=== PATIENT | male | born 1935 | race Asian ===

== ENCOUNTER 2020-10-11 15:37 | Inpatient (IN) | payer MEDICARE, OTHER ==
[~2020-10-11] VITALS: Ht 172.7 cm; Wt 54.6 kg
[2020-10-11 16:50] LABS: ANION GAP 13 mmol/L (8-16); CALCIUM, TOTAL 8.9 mg/dL (8.8-10.5); CARBON DIOXIDE 22 mmol/L (22-29); CHLORIDE 110 mmol/L (98-107); GLOMERULAR FILTR. RATE CALC 36 mL/min (>60); GLUCOSE,RANDOM 93 mg/dL (70-110); POTASSIUM 3.8 mmol/L (3.5-5.1); SODIUM SERUM 145 mmol/L (136-145); UREA NITROGEN, BLOOD 44 mg/dL (7-18)
[2020-10-11 16:55] LABS: ALANINE AMINOTRANSFERASE 96 U/L (12-78); ALBUMIN 3.7 g/dL (3.4-5.0); ALKALINE PHOSPHATASE 56 U/L (46-116); ASPARTATE AMINOTRANSFERASE 154 U/L (15-37); BILIRUBIN,TOTAL 0.7 mg/dL (0.1-1.0); LIPASE 63 U/L (73-393); TOTAL PROTEIN, SERUM 6.9 g/dL (6.4-8.2)
[2020-10-11 17:06] LABS: LACTIC ACID 2.2 mmol/L (0.4-2.0)
[2020-10-11 17:07] LABS: B-TYPE NATRIURETIC PEPTIDE 349 pg/mL (0-100)
[2020-10-11 17:11] LABS: BASOPHILS % (AUTO) 0.2 % (0.0-2.0); EOSINOPHILS % (AUTO) 0.1 % (1.0-6.0); HEMATOCRIT 40.2 % (41-53); HEMOGLOBIN 13.1 g/dL (13.5-17.5); LYMPHOCYTES # (AUTO) 0.2 K/uL (1.0-4.8); LYMPHOCYTES % (AUTO) 2.2 % (22.0-44.0); MEAN CORPUSCULAR HEMOGLOBIN 31.5 pg (26.0-34.0); MEAN CORPUSCULAR HGB CONC 32.5 G/dL (31.0-37.0); MEAN CORPUSCULAR VOLUME 97 fL (80-100); MONOCYTES # (AUTO) 0.6 K/uL (0.1-1.0); MONOCYTES % (AUTO) 6.7 % (2.0-9.0); NEUTROPHILS # (AUTO) 8.6 K/uL (1.8-7.7); RED BLOOD CELL COUNT(AUTO) 4.16 MIL/uL (4.50-5.90); RED CELL DISTRIBUTION WIDTH 14.8 % (11.5-14.5)
[2020-10-11 17:12] LABS: NEUTROPHILS % (AUTO) 90.8 % (40.0-70.0)
[2020-10-11 17:14] LABS: COVID AG,FIA SOURCE NASOPHARYNGEAL
[2020-10-11] MEDS ORDERED: SODIUM CHLORIDE 0.9% 500 ML IV ONE (17:30)
[2020-10-11] MEDS ORDERED: CefTRIAXone 1 GM/DEXTROSE 50 ML IV ONE (17:30)
[2020-10-11 17:32] LABS: APPEARANCE,URINE CLOUDY (CLEAR); BILIRUBIN,URINE NEGATIVE (NEGATIVE); GLUCOSE, URINE (UA) NEGATIVE (NEGATIVE); KETONES,URINE 40 mg/dL (NEGATIVE); LEUKOCYTE ESTERASE ,URINE SMALL (NEGATIVE); NITRATE,URINE NEGATIVE (NEGATIVE); OCCULT BLOOD,URINE LARGE (NEGATIVE); PH,URINE 5.5 (5.0-8.0); PROTEIN,URINE POS 1+ (NEGATIVE); UROBILINOGEN,URINE 0.2 mg/dL (<=1.0)
[2020-10-11 17:32] LABS: PLATELET COUNT (AUTO) 92 K/uL (150-450)
[2020-10-11 17:58] LABS: INFLUENZA TYPE A NEGATIVE FOR TYPE A (NEGATIVE); INFLUENZA TYPE B NEGATIVE FOR TYPE B (NEGATIVE)
[2020-10-11 18:02] LABS: RBC,URINE Full Field /HPF (0-2)
[2020-10-11 18:04] LABS: BACTERIA,URINE None Seen /HPF (None Seen)
[2020-10-11 18:05] LABS: TRANSITIONAL EPI CELLS,URINE None Seen /LPF (None Seen)
[2020-10-11] MEDS ORDERED: ACETAMINOPHEN 325 MG TABLET PO PRN (20:30)
[2020-10-11] MEDS ORDERED: ONDANSETRON HCL 4 MG/2 ML VIAL IVP PRN (20:30)
[2020-10-11] MEDS ORDERED: HydrALAZINE HCL 20 MG/ML VIAL IVP PRN (22:15)
[2020-10-11 22:16] VITALS: BP 189/99
[2020-10-11] MEDS: SODIUM CHLORIDE 0.45% 1,000 ML IV SCH (23:06)
[2020-10-11] MEDS: HEPARIN SODIUM,PORCINE 5,000 UNITS/ML VIAL SQ SCH (23:14)
[2020-10-12] VITALS (7 sets, daily range): BP systolic 134–154; BP diastolic 61–78
[2020-10-12] MEDS: SODIUM CHLORIDE 0.45% 1,000 ML IV SCH ×2 (07:57→17:34)
[2020-10-12] MEDS: HEPARIN SODIUM,PORCINE 5,000 UNITS/ML VIAL SQ SCH (08:00)
[2020-10-12] MEDS ORDERED: SODIUM CHLORIDE 0.9% 100 ML ONE ×2 (10:43→17:31)
[2020-10-12] MEDS: MEMANTINE HCL 10 MG TABLET PO SCH (21:46)
[2020-10-12] MEDS: CARBIDOPA/LEVODOPA 25-100 MG TABLET PO SCH (21:46)
[2020-10-12] MEDS: TAMSULOSIN HCL 0.4 MG CAPSULE PO SCH (21:46)
[2020-10-12] MEDS: ATORVASTATIN CALCIUM 40 MG TABLET PO SCH (21:46)
[2020-10-13] MEDS ORDERED: LISI-893 PO (01:15)
[2020-10-13] MEDS ORDERED: ATOR40TA71 PO (01:15)
[2020-10-13] MEDS ORDERED: CARB-98 PO (01:15)
[2020-10-13] MEDS ORDERED: MIRT-89 PO (01:15)
[2020-10-13] MEDS ORDERED: MEMA10TA11 PO (01:15)
[2020-10-13] MEDS ORDERED: TAMS-13 PO (01:15)
[2020-10-13] MEDS ORDERED: SODIUM CHLORIDE 0.9% 100 ML ONE ×2 (01:32→13:31)
[2020-10-13] MEDS: SODIUM CHLORIDE 0.45% 1,000 ML IV SCH ×2 (03:37→13:48)
[2020-10-13 04:54] VITALS: BP 146/79
[2020-10-13 07:07] LABS: ANION GAP 5 mmol/L (8-16); CALCIUM, TOTAL 7.9 mg/dL (8.8-10.5); CARBON DIOXIDE 25 mmol/L (22-29); CHLORIDE 108 mmol/L (98-107); CREATININE 1.05 mg/dL (0.60-1.30); GLUCOSE,RANDOM 91 mg/dL (70-110); PHOSPHORUS 2.1 mg/dL (2.5-4.9); POTASSIUM 3.6 mmol/L (3.5-5.1); SODIUM SERUM 138 mmol/L (136-145); UREA NITROGEN, BLOOD 25 mg/dL (7-18)
[2020-10-13 07:08] LABS: GLOMERULAR FILTR. RATE CALC > 60 mL/min (>60)
[2020-10-13 07:15] LABS: BASOPHILS % (AUTO) 0.3 % (0.0-2.0); HEMATOCRIT 36.9 % (41-53); HEMOGLOBIN 12.2 g/dL (13.5-17.5); LYMPHOCYTES # (AUTO) 1.2 K/uL (1.0-4.8); LYMPHOCYTES % (AUTO) 19.3 % (22.0-44.0); MEAN CORPUSCULAR HEMOGLOBIN 31.6 pg (26.0-34.0); MEAN CORPUSCULAR VOLUME 96 fL (80-100); MONOCYTES # (AUTO) 0.6 K/uL (0.1-1.0); MONOCYTES % (AUTO) 10.1 % (2.0-9.0); NEUTROPHILS # (AUTO) 4.4 K/uL (1.8-7.7); NEUTROPHILS % (AUTO) 69.3 % (40.0-70.0); PLATELET COUNT (AUTO) 73 K/uL (150-450); RED BLOOD CELL COUNT(AUTO) 3.85 MIL/uL (4.50-5.90); RED CELL DISTRIBUTION WIDTH 15.2 % (11.5-14.5)
[2020-10-13 07:22] VITALS: BP 156/72
[2020-10-13] MEDS: LISINOPRIL 10 MG TABLET PO SCH (08:10)
[2020-10-13] MEDS: MEMANTINE HCL 10 MG TABLET PO SCH ×2 (08:11→19:52)
[2020-10-13] MEDS: CARBIDOPA/LEVODOPA 25-100 MG TABLET PO SCH ×3 (08:11→19:52)
[2020-10-13 10:34] VITALS: BP 135/78
[2020-10-13] MEDS ORDERED: IOHEXOL 350 MG/ML 100 ML VIAL ONE (13:31)
[2020-10-13 15:41] VITALS: BP 133/64
[2020-10-13 19:28] VITALS: BP 136/75
[2020-10-13] MEDS: ATORVASTATIN CALCIUM 40 MG TABLET PO SCH (19:52)
[2020-10-13] MEDS: TAMSULOSIN HCL 0.4 MG CAPSULE PO SCH (19:52)
[2020-10-13 23:40] VITALS: BP 147/88
[2020-10-14] VITALS (7 sets, daily range): BP systolic 111–152; BP diastolic 62–93
[2020-10-14] MEDS: SODIUM CHLORIDE 0.45% 1,000 ML IV SCH ×3 (00:29→19:23)
[2020-10-14] MEDS: LISINOPRIL 10 MG TABLET PO SCH (08:04)
[2020-10-14] MEDS: MEMANTINE HCL 10 MG TABLET PO SCH ×2 (08:04→20:04)
[2020-10-14] MEDS: CARBIDOPA/LEVODOPA 25-100 MG TABLET PO SCH ×3 (08:04→20:04)
[2020-10-14] MEDS ORDERED: MAGNESIUM OXIDE 400 MG TABLET PO ONE (09:30)
[2020-10-14] MEDS: ATORVASTATIN CALCIUM 40 MG TABLET PO SCH (20:04)
[2020-10-14] MEDS: TAMSULOSIN HCL 0.4 MG CAPSULE PO SCH (20:04)
[2020-10-15 04:46] VITALS: BP 143/72
[2020-10-15] MEDS: SODIUM CHLORIDE 0.45% 1,000 ML IV SCH ×2 (05:52→18:58)
[2020-10-15 06:29] LABS: BASOPHILS % (AUTO) 0.3 % (0.0-2.0); EOSINOPHILS % (AUTO) 0.7 % (1.0-6.0); HEMATOCRIT 32.3 % (41-53); HEMOGLOBIN 11.1 g/dL (13.5-17.5); LYMPHOCYTES # (AUTO) 1.1 K/uL (1.0-4.8); LYMPHOCYTES % (AUTO) 22.1 % (22.0-44.0); MEAN CORPUSCULAR HEMOGLOBIN 32.4 pg (26.0-34.0); MEAN CORPUSCULAR HGB CONC 34.3 G/dL (31.0-37.0); MEAN CORPUSCULAR VOLUME 94 fL (80-100); MONOCYTES # (AUTO) 0.5 K/uL (0.1-1.0); MONOCYTES % (AUTO) 10.5 % (2.0-9.0); NEUTROPHILS # (AUTO) 3.2 K/uL (1.8-7.7); NEUTROPHILS % (AUTO) 66.4 % (40.0-70.0); PLATELET COUNT (AUTO) 62 K/uL (150-450); RED BLOOD CELL COUNT(AUTO) 3.42 MIL/uL (4.50-5.90); RED CELL DISTRIBUTION WIDTH 14.8 % (11.5-14.5)
[2020-10-15 07:12] LABS: ANION GAP 1 mmol/L (8-16); CARBON DIOXIDE 29 mmol/L (22-29); CHLORIDE 106 mmol/L (98-107); CREATININE 0.84 mg/dL (0.60-1.30); GLUCOSE,RANDOM 96 mg/dL (70-110); POTASSIUM 3.3 mmol/L (3.5-5.1); SODIUM SERUM 136 mmol/L (136-145); UREA NITROGEN, BLOOD 13 mg/dL (7-18)
[2020-10-15 07:14] LABS: CREATINE KINASE, TOTAL ONLY 1927 U/L (39-308); GLOMERULAR FILTR. RATE CALC > 60 mL/min (>60)
[2020-10-15 07:49] LABS: PHOSPHORUS 3.5 mg/dL (2.5-4.9)
[2020-10-15 08:20] VITALS: BP 147/78
[2020-10-15] MEDS: CARBIDOPA/LEVODOPA 25-100 MG TABLET PO SCH ×3 (09:04→20:25)
[2020-10-15] MEDS: LISINOPRIL 10 MG TABLET PO SCH (09:04)
[2020-10-15] MEDS: MEMANTINE HCL 10 MG TABLET PO SCH ×2 (09:04→20:25)
[2020-10-15] MEDS ORDERED: POTASSIUM CHL 10 MEQ/WATER 50 ML IV PRN (10:00)
[2020-10-15] MEDS ORDERED: POTASSIUM CHLORIDE 20 MEQ ER TABLET PO PRN (10:00)
[2020-10-15] MEDS ORDERED: MAGNESIUM SULFATE 4 GM/WATER 100 ML IV PRN (10:00)
[2020-10-15] MEDS ORDERED: MAGNESIUM SULFATE 2 GM/WATER 50 ML IV PRN (10:00)
[2020-10-15] MEDS ORDERED: MAGNESIUM OXIDE 400 MG TABLET PO PRN (10:00)
[2020-10-15 10:14] LABS: ALBUMIN 2.6 g/dL (3.4-5.0)
[2020-10-15] MEDS ORDERED: MAGNESIUM HYDROXIDE SUSPENSION 30 ML UDCUP PO PRN (11:30)
[2020-10-15] MEDS: DOCUSATE SODIUM 100 MG CAPSULE PO SCH ×2 (12:05→20:25)
[2020-10-15 13:14] VITALS: BP 118/65
[2020-10-15 16:31] VITALS: BP 131/65
[2020-10-15 19:09] VITALS: BP 127/64
[2020-10-15] MEDS: ATORVASTATIN CALCIUM 40 MG TABLET PO SCH (20:25)
[2020-10-15] MEDS: TAMSULOSIN HCL 0.4 MG CAPSULE PO SCH (20:25)
[2020-10-16 00:01] VITALS: BP 146/74
[2020-10-16 04:30] VITALS: BP 150/79
[2020-10-16] MEDS: SODIUM CHLORIDE 0.45% 1,000 ML IV SCH ×2 (04:33→14:25)
[2020-10-16 07:18] LABS: MAGNESIUM 1.5 mg/dL (1.80-2.40)
[2020-10-16 08:11] VITALS: BP 146/77
[2020-10-16] MEDS: LISINOPRIL 10 MG TABLET PO SCH (08:52)
[2020-10-16] MEDS: DOCUSATE SODIUM 100 MG CAPSULE PO SCH (08:52)
[2020-10-16] MEDS: CARBIDOPA/LEVODOPA 25-100 MG TABLET PO SCH ×2 (08:52→16:17)
[2020-10-16] MEDS: MEMANTINE HCL 10 MG TABLET PO SCH (08:52)
[2020-10-16 11:38] VITALS: BP 117/62
[2020-10-16] MEDS ORDERED: MAGNESIUM OXIDE 400 MG TABLET PO PRN (12:00)
[2020-10-16] MEDS ORDERED: MAGNESIUM SULFATE 4 GM/WATER 100 ML IV PRN (12:00)
[2020-10-16] MEDS ORDERED: MAGNESIUM SULFATE 2 GM/WATER 50 ML IV PRN (12:00)
[2020-10-16 12:13] LABS: ALBUMIN 2.6 g/dL (3.4-5.0)
[2020-10-16 16:19] VITALS: BP 164/84
[2020-10-16] MEDS ORDERED: DOCU100C33 PO (17:53)
[2020-10-16] MEDS ORDERED: ACET-784 PO (17:59)
[2020-10-16] MEDS ORDERED: [UNRECOGNIZED DRUG - CODE] IV (18:02)
[2020-10-16] MEDS ORDERED: MAGN800O2 PO (18:07)
[2020-10-16] MEDS ORDERED: HEPA500018 SQ (18:11)
[2020-10-16] MEDS ORDERED: HEPARIN SODIUM,PORCINE 5,000 UNITS/ML VIAL SQ SCH (21:00)
== END 2020-10-16 17:20 | DRG 682 ==
LOC: EMS 15:41 → 5S 20:17
PROVIDERS: ADMIT Internal Medicine; ATTEND Internal Medicine
DX: N17.9 Acute kidney failure, unspecified (principal); E43 Unspecified severe protein-calorie malnutrition; M62.82 Rhabdomyolysis; G93.40 Encephalopathy, unspecified; Z68.1 Body mass index [BMI] 19.9 or less, adult; Z66 Do not resuscitate; I10 Essential (primary) hypertension; R31.0 Gross hematuria; Z20.822 Contact with and (suspected) exposure to COVID-19; G20 Parkinson's disease; E86.0 Dehydration; E87.6 Hypokalemia
CPT/HCPCS: 51702; 70450; 71045; 74178; 76770; 80048; 80053; 81001; 82040; 82550; 83605; 83690; 83735; 83880; 84100; 84132; 84153; 84484; 85025; 87040; 87804; 92526; 92610; 93005; 97162; 97530; 99291; A9575; J0360; J0696; J1644; J3475; J7040; J7050; 36415-L1; 36415-TC

== ENCOUNTER 2020-12-08 12:49 | Emergency (ER) | payer MEDICARE, OTHER ==
[~2020-12-08] VITALS: Ht 170.2 cm; Wt 56.8 kg
[~2020-12-08 12:49] MED LIST: ACET-784 PO; ATOR40TA71 PO; CARB-98 PO; DOCU100C33 PO; HEPA500018 SQ; LISI-893 PO; MAGN800O2 PO; MEMA10TA11 PO; MIRT-89 PO; TAMS-13 PO; [UNRECOGNIZED DRUG - CODE] IV
[2020-12-08] MEDS ORDERED: MEMA10TA55 PO (13:39)
[2020-12-08] MEDS ORDERED: MULT-1203 PO (13:40)
[2020-12-08] MEDS ORDERED: CHOL200016 PO (13:42)
[2020-12-08 14:25] LABS: BASOPHILS % (AUTO) 0.8 % (0.0-2.0); EOSINOPHILS % (AUTO) 0.3 % (1.0-6.0); HEMATOCRIT 41.3 % (41-53); HEMOGLOBIN 13.5 g/dL (13.5-17.5); LYMPHOCYTES # (AUTO) 0.9 K/uL (1.0-4.8); LYMPHOCYTES % (AUTO) 10.3 % (22.0-44.0); MEAN CORPUSCULAR HEMOGLOBIN 31.9 pg (26.0-34.0); MEAN CORPUSCULAR HGB CONC 32.7 G/dL (31.0-37.0); MEAN CORPUSCULAR VOLUME 97 fL (80-100); MONOCYTES # (AUTO) 0.5 K/uL (0.1-1.0); MONOCYTES % (AUTO) 5.4 % (2.0-9.0); NEUTROPHILS # (AUTO) 7.1 K/uL (1.8-7.7); NEUTROPHILS % (AUTO) 83.2 % (40.0-70.0); PLATELET COUNT (AUTO) 155 K/uL (150-450); RED BLOOD CELL COUNT(AUTO) 4.24 MIL/uL (4.50-5.90); RED CELL DISTRIBUTION WIDTH 15.3 % (11.5-14.5)
[2020-12-08 14:35] LABS: ANION GAP 6 mmol/L (8-16); CALCIUM, TOTAL 9.2 mg/dL (8.8-10.5); CARBON DIOXIDE 31 mmol/L (22-29); CHLORIDE 103 mmol/L (98-107); CREATININE 0.95 mg/dL (0.60-1.30); GLUCOSE,RANDOM 109 mg/dL (70-110); POTASSIUM 4.3 mmol/L (3.5-5.1); SODIUM SERUM 140 mmol/L (136-145); UREA NITROGEN, BLOOD 18 mg/dL (7-18)
[2020-12-08 14:37] LABS: GLOMERULAR FILTR. RATE CALC > 60 mL/min (>60)
[2020-12-08 14:40] LABS: PROTHROMBIN TIME 10.8 SEC (9.4-11.6)
[2020-12-08 14:57] LABS: B-TYPE NATRIURETIC PEPTIDE 49 pg/mL (0-100)
[2020-12-08 14:59] LABS: ALANINE AMINOTRANSFERASE 11 U/L (12-78); ALBUMIN 3.5 g/dL (3.4-5.0); ALKALINE PHOSPHATASE 63 U/L (46-116); ASPARTATE AMINOTRANSFERASE 20 U/L (15-37); BILIRUBIN,TOTAL 0.5 mg/dL (0.1-1.0); CREATINE KINASE, TOTAL ONLY 86 U/L (39-308); TOTAL PROTEIN, SERUM 7.4 g/dL (6.4-8.2)
[2020-12-08 18:50] VITALS: BP 119/68
== END 2020-12-08 18:57 | disposition home or self-care (01) ==
LOC: EMS 13:06
DX: S09.90XA Unspecified injury of head, initial encounter (principal); I10 Essential (primary) hypertension; Z79.899 Other long term (current) drug therapy; W06.XXXA Fall from bed, initial encounter; Y93.89 Activity, other specified; Y92.89 Other specified places as the place of occurrence of the external cause; Y99.8 Other external cause status
CPT/HCPCS: 70450; 71045; 72125; 80053; 82550; 83880; 84484; 85025; 85610; 85730; 93005; 99285; 36415-L1; 36415-TC

== ENCOUNTER 2021-09-22 06:11 | Inpatient (IN) | payer MEDICARE, OTHER ==
[~2021-09-22] VITALS: Ht 160 cm; Wt 54.5 kg
[~2021-09-22 06:11] MED LIST changes: +AMLO-257 PO; +ASPI-1450 PO; -ATOR40TA71 PO; +CHOL200059 PO; -HEPA500018 SQ; -MAGN800O2 PO; -MEMA10TA11 PO; -MIRT-89 PO; +MULT-1203 PO; -[UNRECOGNIZED DRUG - CODE] IV
[2021-09-22 07:22] LABS: BASOPHILS % (AUTO) 0.8 % (0.0-2.0); EOSINOPHILS % (AUTO) 0.9 % (1.0-6.0); HEMATOCRIT 36.6 % (41-53); HEMOGLOBIN 11.9 g/dL (13.5-17.5); LYMPHOCYTES % (AUTO) 10.5 % (22.0-44.0); MEAN CORPUSCULAR HEMOGLOBIN 30.2 pg (26.0-34.0); MEAN CORPUSCULAR HGB CONC 32.5 G/dL (31.0-37.0); MEAN CORPUSCULAR VOLUME 93 fL (80-100); MONOCYTES # (AUTO) 0.6 K/uL (0.1-1.0); MONOCYTES % (AUTO) 6.8 % (2.0-9.0); NEUTROPHILS # (AUTO) 7.6 K/uL (1.8-7.7); PLATELET COUNT (AUTO) 169 K/uL (150-450); RED BLOOD CELL COUNT(AUTO) 3.94 MIL/uL (4.50-5.90); RED CELL DISTRIBUTION WIDTH 15.7 % (11.5-14.5)
[2021-09-22] MEDS ORDERED: ACETAMINOPHEN 500 MG TABLET PO ONE (07:30)
[2021-09-22 07:53] LABS: CREATININE 1.63 mg/dL (0.60-1.30); POTASSIUM 4.1 mmol/L (3.5-5.1)
[2021-09-22] MEDS ORDERED: SODIUM CHLORIDE 0.9% 500 ML IV ONE (08:00)
[2021-09-22 10:04] LABS: APPEARANCE,URINE CLEAR (CLEAR); BILIRUBIN,URINE NEGATIVE (NEGATIVE); GLUCOSE, URINE (UA) NEGATIVE (NEGATIVE); KETONES,URINE TRACE mg/dL (NEGATIVE); LEUKOCYTE ESTERASE ,URINE NEGATIVE (NEGATIVE); NITRATE,URINE NEGATIVE (NEGATIVE); OCCULT BLOOD,URINE TRACE (NEGATIVE); PH,URINE 5.5 (5.0-8.0); PROTEIN,URINE NEGATIVE (NEGATIVE); SPECIFIC GRAVITIY, URINE 1.014 (1.003-1.030); UROBILINOGEN,URINE <=1.0 mg/dL (<=1.0)
[2021-09-22 10:16] LABS: COVID AG,FIA SOURCE NASAL SWAB
[2021-09-22 10:18] LABS: BACTERIA,URINE None Seen /HPF (None Seen); RBC,URINE 0-2 /HPF (0-2); SQUAMOUS EPITHELIAL CELL,UR Few /LPF (None Seen); WBC,URINE None Seen /HPF (0-5)
[2021-09-22] MEDS ORDERED: CARBIDOPA/LEVODOPA 25-100 MG TABLET PO ONE (12:00)
[2021-09-22 12:30] VITALS: BP 152/74
[2021-09-22 15:35] VITALS: BP 128/65
[2021-09-22 20:09] VITALS: BP 119/58
[2021-09-22 20:30] VITALS: BP 119/58
[2021-09-23] MEDS ORDERED: IPRATROPIUM BROMIDE 0.5 MG/2.5 ML NEB SOLUTION NEB PRN (01:15)
[2021-09-23] MEDS ORDERED: ONDANSETRON HCL 4 MG/2 ML VIAL IVP PRN (01:15)
[2021-09-23] MEDS ORDERED: MORPHINE SULFATE 2 MG/ML SYRINGE IVP PRN (01:15)
[2021-09-23] MEDS ORDERED: DOCUSATE SODIUM 100 MG CAPSULE PO PRN (01:15)
[2021-09-23] MEDS ORDERED: MAGNESIUM HYDROXIDE SUSPENSION 30 ML UDCUP PO PRN (01:15)
[2021-09-23] MEDS ORDERED: ZOLPIDEM TARTRATE 5 MG TABLET PO PRN (01:15)
[2021-09-23] MEDS ORDERED: BISACODYL 10 MG RECTAL RECTAL SUPPOSITORY PR PRN (01:15)
[2021-09-23] MEDS ORDERED: ACETAMINOPHEN 325 MG TABLET PO PRN (01:15)
[2021-09-23] MEDS ORDERED: ALBUTEROL SULFATE 2.5 MG/0.5 ML NEB SOLUTION NEB PRN (01:15)
[2021-09-23] MEDS ORDERED: HYDROCODONE/ACETAMINOPHEN 5-325 MG TABLET PO PRN (01:15)
[2021-09-23 05:04] VITALS: BP 148/86
[2021-09-23] MEDS: CARBIDOPA/LEVODOPA 25-100 MG TABLET PO SCH ×2 (08:12→16:12)
[2021-09-23] MEDS: HEPARIN SODIUM,PORCINE 5,000 UNITS/ML VIAL SQ SCH ×2 (08:13→16:12)
[2021-09-23 08:33] VITALS: BP 151/89
[2021-09-23] MEDS ORDERED: ASPIRIN 81 MG CHEWABLE TABLET PO SCH (09:00)
[2021-09-23] MEDS ORDERED: PANTOPRAZOLE SODIUM 40 MG/VIAL IVP SCH (09:00)
[2021-09-23] MEDS ORDERED: DOCUSATE SODIUM 100 MG CAPSULE PO SCH (09:00)
[2021-09-23] MEDS ORDERED: CHOLECALCIFEROL (VIT D3) 2,000 UNITS [50 MCG] TABLET PO SCH (09:00)
[2021-09-23] MEDS ORDERED: LISINOPRIL 10 MG TABLET PO SCH (09:00)
[2021-09-23] MEDS ORDERED: MULTIVITAMINS, THERAPEUTIC TABLET PO SCH (09:00)
[2021-09-23] MEDS ORDERED: AmLODIPine BESYLATE 5 MG TABLET PO SCH (09:00)
[2021-09-23 12:08] LABS: BASOPHILS % (AUTO) 0.5 % (0.0-2.0); EOSINOPHILS % (AUTO) 1.5 % (1.0-6.0); HEMATOCRIT 35.7 % (41-53); HEMOGLOBIN 11.8 g/dL (13.5-17.5); LYMPHOCYTES % (AUTO) 12.2 % (22.0-44.0); MEAN CORPUSCULAR HEMOGLOBIN 30.6 pg (26.0-34.0); MEAN CORPUSCULAR VOLUME 93 fL (80-100); MONOCYTES # (AUTO) 0.6 K/uL (0.1-1.0); MONOCYTES % (AUTO) 6.6 % (2.0-9.0); NEUTROPHILS # (AUTO) 6.7 K/uL (1.8-7.7); NEUTROPHILS % (AUTO) 79.2 % (40.0-70.0); PLATELET COUNT (AUTO) 175 K/uL (150-450); RED BLOOD CELL COUNT(AUTO) 3.85 MIL/uL (4.50-5.90); RED CELL DISTRIBUTION WIDTH 16.1 % (11.5-14.5)
[2021-09-23 12:25] LABS: ALBUMIN 2.5 g/dL (3.4-5.0); ALKALINE PHOSPHATASE 58 U/L (46-116); ANION GAP 4 mmol/L (8-16); ASPARTATE AMINOTRANSFERASE 31 U/L (15-37); BILIRUBIN,TOTAL 0.5 mg/dL (0.1-1.0); CALCIUM, TOTAL 8.3 mg/dL (8.8-10.5); CARBON DIOXIDE 28 mmol/L (22-29); CHLORIDE 108 mmol/L (98-107); CREATININE 1.04 mg/dL (0.60-1.30); GLOMERULAR FILTR. RATE CALC > 60 mL/min (>60); GLUCOSE,RANDOM 91 mg/dL (70-110); SODIUM SERUM 140 mmol/L (136-145); TOTAL PROTEIN, SERUM 6.2 g/dL (6.4-8.2); UREA NITROGEN, BLOOD 28 mg/dL (7-18)
[2021-09-23 12:34] LABS: ALANINE AMINOTRANSFERASE 20 U/L (12-78)
[2021-09-23 16:08] VITALS: BP 139/76
[2021-09-23] MEDS ORDERED: TAMSULOSIN HCL 0.4 MG CAPSULE PO SCH (21:00)
== END 2021-09-23 20:32 | disposition home or self-care (01) | DRG 563 ==
LOC: EMS 06:11 → 6S 09:48
PROVIDERS: ADMIT Hospitalist; ATTEND Hospitalist
DX: S62.325A Displaced fracture of shaft of fourth metacarpal bone, left hand, initial encounter for closed fracture (principal); N17.9 Acute kidney failure, unspecified; E78.00 Pure hypercholesterolemia, unspecified; E78.5 Hyperlipidemia, unspecified; E86.0 Dehydration; F02.80 Dementia in other diseases classified elsewhere, unspecified severity, without behavioral disturbance, psychotic disturbance, mood disturbance, and anxiety; G20 Parkinson's disease; I10 Essential (primary) hypertension; N40.0 Benign prostatic hyperplasia without lower urinary tract symptoms; W18.39XA Other fall on same level, initial encounter; Z20.822 Contact with and (suspected) exposure to COVID-19; R32 Unspecified urinary incontinence; W19.XXXA Unspecified fall, initial encounter; Z79.899 Other long term (current) drug therapy; Z79.82 Long term (current) use of aspirin; Y93.89 Activity, other specified; Y92.89 Other specified places as the place of occurrence of the external cause; Y99.8 Other external cause status
CPT/HCPCS: 70450; 71045; 72125; 72170; 80048; 80053; 81001; 82550; 85025; 92610; 93005; 93306; 93880; 97112; 97162; 97166; 97535; 99285; C9113; J1644; J7030; 36415-L1; 36415-TC

== ENCOUNTER 2022-05-14 21:56 | Inpatient (IN) | payer MEDICARE, OTHER ==
[~2022-05-14] VITALS: Ht 160 cm; Wt 45.0 kg
[~2022-05-14 21:56] MED LIST changes: -CARB-98 PO; +CARB1TAB36 PO
[2022-05-14] MEDS ORDERED: VANCOMYCIN 1GM/WATER(PEG/NADA) 200 ML IV ONE (22:15)
[2022-05-14] MEDS ORDERED: 0.9% SODIUM CHLORIDE 10 ML SYRINGE IVP PRN (22:15)
[2022-05-14] MEDS ORDERED: SODIUM CHLORIDE 0.9% 1,350 ML IV ONE (22:15)
[2022-05-14] MEDS ORDERED: PIPERACILLIN SODIUM/TAZOBACTAM 4.5 GM in DEXTROSE 5%-WATER 100 ML IV ONE (22:15)
[2022-05-14] MEDS ORDERED: GLUCAGON,HUMAN RECOMBINANT 1 MG VIAL IM ONE (22:30)
[2022-05-14] MEDS ORDERED: DEXTROSE 50%-WATER 25 GM/50 ML SYRINGE IVP ONE ×3 (22:30→23:00)
[2022-05-14 22:42] LABS: HEMOGLOBIN 8.9 g/dL (13.5-17.5); MEAN CORPUSCULAR HEMOGLOBIN 29.4 pg (26.0-34.0); MEAN CORPUSCULAR HGB CONC 31.7 G/dL (31.0-37.0); MEAN CORPUSCULAR VOLUME 93 fL (80-100); PLATELET COUNT (AUTO) 161 K/uL (150-450); RED BLOOD CELL COUNT(AUTO) 3.01 MIL/uL (4.50-5.90); RED CELL DISTRIBUTION WIDTH 19.4 % (11.5-14.5)
[2022-05-14 22:53] LABS: ANION GAP 4 mmol/L (8-16); CALCIUM, TOTAL 7.5 mg/dL (8.8-10.5); CARBON DIOXIDE 31 mmol/L (22-29); CHLORIDE 111 mmol/L (98-107); CREATININE 1.13 mg/dL (0.60-1.30); GLUCOSE,RANDOM 137 mg/dL (70-110); POTASSIUM 4.9 mmol/L (3.5-5.1); SODIUM SERUM 146 mmol/L (136-145); UREA NITROGEN, BLOOD 83 mg/dL (7-18)
[2022-05-14 22:54] LABS: GLOMERULAR FILTR. RATE CALC > 60 mL/min (>60)
[2022-05-14 22:57] LABS: ALANINE AMINOTRANSFERASE 16 U/L (12-78); ALBUMIN 1.2 g/dL (3.4-5.0); ALKALINE PHOSPHATASE 83 U/L (46-116); ASPARTATE AMINOTRANSFERASE 130 U/L (15-37); BILIRUBIN,TOTAL 0.6 mg/dL (0.1-1.0); INR 1.8 (0.9-1.1); PROTHROMBIN TIME 18.6 SEC (9.4-11.6); TOTAL PROTEIN, SERUM 5.1 g/dL (6.4-8.2)
[2022-05-14 23:03] LABS: LACTIC ACID 2.5 mmol/L (0.4-2.0)
[2022-05-14 23:06] LABS: B-TYPE NATRIURETIC PEPTIDE 457 pg/mL (0-100)
[2022-05-14 23:27] LABS: SEGMENTED NEUTROPHILS % 69 % (40-70)
[2022-05-14 23:28] LABS: BAND NEUTROPHILS % (MANUAL) 6 % (0-5); LYMPHOCYTES % (MANUAL) 20 % (22-44); MONOCYTES % (MANUAL) 3 % (2-9); REACTIVE LYMPHOCYTES 2 % (0-0)
[2022-05-14] MEDS ORDERED: CALCIUM GLUCONATE 1,000 MG in DEXTROSE 5%-WATER 50 ML IV ONE (23:30)
[2022-05-14 23:36] LABS: COVID AG,FIA SOURCE NASAL SWAB
[2022-05-14 23:48] LABS: GLUCOSE,POINT OF CARE 134 MG/DL (70-110)
[2022-05-14 23:56] LABS: INFLUENZA TYPE A NEGATIVE FOR TYPE A (NEGATIVE); INFLUENZA TYPE B NEGATIVE FOR TYPE B (NEGATIVE)
[2022-05-15 01:47] LABS: GLUCOSE,POINT OF CARE 137 MG/DL (70-110)
[2022-05-15] MEDS ORDERED: MEMA10TA11 PO (02:40)
[2022-05-15] MEDS ORDERED: ATOR40TA28 PO (02:40)
[2022-05-15] MEDS ORDERED: MIRT-89 PO (02:40)
[2022-05-15 03:52] LABS: GLUCOSE,POINT OF CARE 87 MG/DL (70-110)
[2022-05-15 09:21] VITALS: BP 128/71
[2022-05-15] MEDS ORDERED: BISACODYL 10 MG RECTAL RECTAL SUPPOSITORY PR PRN (11:15)
[2022-05-15] MEDS ORDERED: DEXTROSE 5%-0.45% SODIUM CHL 500 ML IV ONE (11:15)
[2022-05-15] MEDS ORDERED: MORPHINE SULFATE 2 MG/ML SYRINGE IVP PRN (11:15)
[2022-05-15] MEDS ORDERED: *CLINICAL-LEVOFLOXACIN IVPB DOSING CLINICAL ONE (11:15)
[2022-05-15] MEDS ORDERED: MAGNESIUM HYDROXIDE SUSPENSION 30 ML UDCUP PO PRN (11:15)
[2022-05-15] MEDS ORDERED: ZOLPIDEM TARTRATE 5 MG TABLET PO PRN (11:15)
[2022-05-15] MEDS ORDERED: HYDROCODONE/ACETAMINOPHEN 5-325 MG TABLET PO PRN (11:15)
[2022-05-15] MEDS ORDERED: ONDANSETRON HCL 4 MG/2 ML VIAL IVP PRN (11:15)
[2022-05-15] MEDS ORDERED: ACETAMINOPHEN 325 MG TABLET PO PRN (11:15)
[2022-05-15] MEDS ORDERED: LEVOFLOXACIN 500 MG/D5% WATER 100 ML IV ONE (12:00)
[2022-05-15] MEDS ORDERED: CARBIDOPA/LEVODOPA 25-100 MG TABLET PO SCH (16:00)
[2022-05-15] MEDS ORDERED: DOCUSATE SODIUM 100 MG CAPSULE PO SCH (21:00)
[2022-05-16] MEDS ORDERED: ATORVASTATIN CALCIUM 40 MG TABLET PO SCH (09:00)
[2022-05-16] MEDS ORDERED: MEMANTINE HCL 10 MG TABLET PO SCH (09:00)
[2022-05-16] MEDS ORDERED: ASPIRIN 81 MG CHEWABLE TABLET PO SCH (09:00)
[2022-05-16] MEDS ORDERED: PANTOPRAZOLE SODIUM 40 MG DR TABLET PO SCH (09:00)
[2022-05-16] MEDS ORDERED: LEVOFLOXACIN 250 MG/D5% WATER 50 ML IV SCH (12:00)
== END 2022-05-15 13:20 | DRG 871 ==
LOC: EMS 21:57 → 6S 05-15 08:32
PROVIDERS: ADMIT Internal Medicine; ATTEND Internal Medicine
PROC: 5A09357 Assistance with Respiratory Ventilation, Less than 24 Consecutive Hours, Continuous Positive Airway Pressure (ICD-10-PCS; principal; 2022-05-15)
DX: A41.9 Sepsis, unspecified organism (principal); E43 Unspecified severe protein-calorie malnutrition; G93.41 Metabolic encephalopathy; J18.9 Pneumonia, unspecified organism; J96.01 Acute respiratory failure with hypoxia; N17.0 Acute kidney failure with tubular necrosis; R64 Cachexia; Z68.1 Body mass index [BMI] 19.9 or less, adult; E87.0 Hyperosmolality and hypernatremia; R65.20 Severe sepsis without septic shock; E11.22 Type 2 diabetes mellitus with diabetic chronic kidney disease; E11.649 Type 2 diabetes mellitus with hypoglycemia without coma; E78.00 Pure hypercholesterolemia, unspecified; D64.9 Anemia, unspecified; F02.80 Dementia in other diseases classified elsewhere, unspecified severity, without behavioral disturbance, psychotic disturbance, mood disturbance, and anxiety; G20 Parkinson's disease; I12.9 Hypertensive chronic kidney disease with stage 1 through stage 4 chronic kidney disease, or unspecified chronic kidney disease; N18.9 Chronic kidney disease, unspecified; N40.0 Benign prostatic hyperplasia without lower urinary tract symptoms; R62.7 Adult failure to thrive; Z20.822 Contact with and (suspected) exposure to COVID-19; E86.0 Dehydration; Z66 Do not resuscitate; Z79.899 Other long term (current) drug therapy
CPT/HCPCS: 71045; 80053; 82962; 83605; 83880; 84484; 85025; 85610; 87040; 87077; 87205; 87804; 93005; 94660; 99285; J0610; J1956; J2543; J7060; Q9967; 36415-L1; 36415-TC